=== PATIENT | male | born 1970 | race Caucasian/White ===

== ENCOUNTER 2018-11-03 20:39 | Emergency (ER) | payer BC, MEDICAID, OTHER ==
[~2018-11-03] VITALS: Ht 177.8 cm; Wt 112.0 kg
[2018-11-03 20:48] VITALS: BP 157/98
[2018-11-03] MEDS ORDERED: CEPH-572 PO (21:45)
== END 2018-11-03 21:55 | disposition home or self-care (01) ==
LOC: ER 20:39
DX: L03.012 Cellulitis of left finger (principal); F17.200 Nicotine dependence, unspecified, uncomplicated; Z79.2 Long term (current) use of antibiotics
CPT/HCPCS: 99283